=== PATIENT | male | born 1985 | race Hispanic/Latino ===

== ENCOUNTER 2017-11-10 14:57 | Emergency (ER) | payer OTHER ==
[2017-11-10 15:03] VITALS: BMI 25.0
[2017-11-10] MEDS ORDERED: Sodium Chloride 0.9% 1,000 ML IV STA (15:35)
--- NOTE | 2017-11-10 15:37 | C.PDOC ---
History Of Present Illness 31 y/o M p/w rectal bleeding x 2 days. Patient reports lower abdominal pain, cramping, intermittent, with diarrhea with bright red blood. Reports nausea and NBNB vomiting. Denies alcohol use for prolonged period. Denies being sexually active and not concerned with STDs. Denies fever, chills, chest pain, dyspnea, recent travel, camping/hiking. Time Seen by Provider: 11/10/17 15:15 Chief Complaint (Nursing): Abdominal Pain Past Medical History Vital Signs: Last Vital Signs Temp 98.4 F 11/10/17 15:03 Pulse 80 11/10/17 15:03 Resp 17 11/10/17 15:03 BP 133/83 11/10/17 15:03 Pulse Ox 100 11/10/17 15:03 - Medical History PMH: Pancreatitis Family History: States: No Known Family Hx - Social History Hx Alcohol Use: Yes Hx Substance Use: Yes - Immunization History Hx Tetanus Toxoid Vaccination: No Hx Influenza Vaccination: No Hx Pneumococcal Vaccination: No Review Of Systems Except As Marked, All Systems Reviewed And Found Negative. Constitutional: Negative for: Fever Cardiovascular: Negative for: Chest Pain Physical Exam - Physical Exam Additional Physical Exam Comments: Constitutional: No acute distress. Head: Normocephalic. Atraumatic. Eyes: PERRL. ENT: Moist mucous membranes. Neck: Supple. Cardiovascular: Regular rate. Radial pulse 2+ bilaterally. Chest: No tenderness. Respiratory: Clear to auscultation bilaterally. GI: Soft. Suprapubic tenderness. Nondistended. : No testicular tenderness or swelling. Bright red blood per rectum. No hemorrhoids or fissures. Back: No CVA tenderness. Musculoskeletal: No tenderness or swelling of extremities. Skin: No rash. Neurologic: Alert, no focal deficit. ED Course And Treatment - Laboratory Results Result Diagrams: 11/10/17 15:41 11/10/17 15:41 O2 Sat by Pulse Oximetry: 100 Medical Decision Making Medical Decision Making: Patient in no distress, states he is feeling well. Vitals normal. Antibiotics administered and prescribed. [employer] checked, counseled on opioid risks. F/u GI for further evaluation. Informed of pancreatic finding and copy of CT given. Disposition - Disposition Referrals: Antonio Hernández MD [Staff Provider] - [facility] [Outside] Disposition: HOME/ ROUTINE Disposition Time: 17:34 Condition: STABLE Additional Instructions: FINDINGS: LOWER THORAX: No visible consolidation, pleural effusion, or pneumothorax. LIVER: Unremarkable. GALLBLADDER AND BILE DUCTS: Unremarkable. PANCREAS: 1.3 x 1.6 cm low-density focus within the left upper quadrant possibly arising from the inferior stomach or the pancreatic tail. SPLEEN: Unremarkable. ADRENALS: Unremarkable. KIDNEYS AND URETERS: The kidneys enhance symmetrically. No hydronephrosis or obstructing calculus identified. VASCULATURE: No aortic aneurysm. BOWEL: Lack of oral contrast limits evaluation for bowel pathology. Bowel loops appear within normal limits of caliber without evidence of obstruction. Marked wall thickening of the left colon consistent with colitis (i.e. Infectious, inflammatory, ischemic). APPENDIX: The appendix appears within normal limits of caliber. No secondary signs of acute appendicitis. PERITONEUM: Mild mesenteric ascites. Small pelvic free fluid. No definite free air. LYMPH NODES: No bulky adenopathy identified. BLADDER: Unremarkable. REPRODUCTIVE: Prostate gland appears unremarkable. BONES: No acute osseous abnormality is detected. OTHER FINDINGS: None. IMPRESSION: Marked wall thickening of the left colon appears consistent with colitis (i.e. Infectious, inflammatory, ischemic). 1.3 x 1.6 cm low-density focus within the left upper quadrant possibly arising from the inferior stomach or the pancreatic tail. Dedicated pancreatic protocol may be considered for further evaluation. Small pelvic free fluid. Mild mesenteric ascites. Additional findings as above. Prescriptions: Ciprofloxacin [Cipro] 500 mg PO BID #14 tab Metronidazole [Flagyl] 500 mg PO Q8 #30 tab Ondansetron ODT [Zofran ODT] 4 mg PO Q8 #12 odt oxyCODONE/Acetaminophen [Percocet 5/325 mg Tab] 1 tab PO Q6 #10 tab Instructions: Inflammatory Bowel Disease, Bloody Stools, Adult (DC) Forms: [employer] (Maori) - Clinical Impression Clinical Impression: Colitis
[2017-11-10] MEDS ORDERED: Simethicone 80 mg Chewtab PO STA (15:45)
[2017-11-10 15:47] LABS: BASO # 0.1 K/uL (0.0-0.2); BASO % 0.5 % (0.0-2.0); HEMOGLOBIN 14.1 g/dL (12.0-18.0); MEAN CORPUSCULAR HEMOGLOBIN 29.8 pg (27.0-31.0); MEAN CORPUSCULAR HGB CONC 33.5 g/dL (33.0-37.0); MEAN PLATELET VOLUME 9.1 fL (7.2-11.7); MONO # 0.9 K/uL (0.0-0.8); MONO % 5.4 % (0.0-10.0); NEUT # 15.2 K/uL (1.8-7.0); NEUT % 88.1 % (50.0-75.0); PLATELET COUNT 235 K/uL (130-400); RBC 4.74 Mil/uL (4.40-5.90); RED CELL DISTRIBUTION WIDTH 13.9 % (11.5-14.5); WHITE BLOOD COUNT 17.3 K/uL (4.8-10.8)
[2017-11-10 15:48] LABS: URINE BILIRUBIN NEGATIVE (NEGATIVE); URINE CLARITY Clear (Clear); URINE COLOR Yellow (YELLOW); URINE GLUCOSE (UA) NORMAL (Normal); URINE LEUKOCYTE ESTERASE NEG Leu/uL (Negative); URINE PROTEIN 1+ mg/dL (NEGATIVE); URINE UROBILINOGEN NORMAL mg/dL (0.2-1.0)
[2017-11-10 15:50] LABS: URINE BLOOD 1+ (NEGATIVE)
[2017-11-10 15:59] LABS: BLOOD UREA NITROGEN 16 mg/dL (9-20); CALCIUM 9.9 mg/dl (8.6-10.4); GFR NON-AFRICAN AMERICAN > 60; LIPASE 33 U/L (23-300)
[2017-11-10 16:00] LABS: ALB/GLOB RATIO 1.5 (1.0-2.1); ALBUMIN 4.6 g/dL (3.5-5.0); ALT/SGPT 33 U/L (21-72); AST/SGOT 43 U/L (17-59)
[2017-11-10] MEDS ORDERED: Iodixanol 320 MG/ML 100 ML BOTTLE IV ONE (16:10)
[2017-11-10 16:17] LABS: LYMPHOCYTE 6 % (20-40); MONOCYTE 5 % (0-10); NEUTROPHIL 89 % (50-75); PLATELET ESTIMATE NORMAL (NORMAL); TOTAL CELLS COUNTED 100
--- NOTE | 2017-11-10 17:14 | CT ---
Date of service: 11/10/2017 PROCEDURE: CT Abdomen and Pelvis with contrast HISTORY: lower abdominal pain, rectal bleed, vomiting COMPARISON: None available TECHNIQUE: Contrast dose: 100 cc Visipaque IV Radiation dose: Total exam DLP = 376.26 mGy-cm. This CT exam was performed using one or more of the following dose reduction techniques: Automated exposure control, adjustment of the mA and/or kV according to patient size, and/or use of iterative reconstruction technique. FINDINGS: LOWER THORAX: No visible consolidation, pleural effusion, or pneumothorax. LIVER: Unremarkable. GALLBLADDER AND BILE DUCTS: Unremarkable. PANCREAS: 1.3 x 1.6 cm low-density focus within the left upper quadrant possibly arising from the inferior stomach or the pancreatic tail. SPLEEN: Unremarkable. ADRENALS: Unremarkable. KIDNEYS AND URETERS: The kidneys enhance symmetrically. No hydronephrosis or obstructing calculus identified. VASCULATURE: No aortic aneurysm. BOWEL: Lack of oral contrast limits evaluation for bowel pathology. Bowel loops appear within normal limits of caliber without evidence of obstruction. Marked wall thickening of the left colon consistent with colitis (i.e. Infectious, inflammatory, ischemic). APPENDIX: The appendix appears within normal limits of caliber. No secondary signs of acute appendicitis. PERITONEUM: Mild mesenteric ascites. Small pelvic free fluid. No definite free air. LYMPH NODES: No bulky adenopathy identified. BLADDER: Unremarkable. REPRODUCTIVE: Prostate gland appears unremarkable. BONES: No acute osseous abnormality is detected. OTHER FINDINGS: None. IMPRESSION: Marked wall thickening of the left colon appears consistent with colitis (i.e. Infectious, inflammatory, ischemic). 1.3 x 1.6 cm low-density focus within the left upper quadrant possibly arising from the inferior stomach or the pancreatic tail. Dedicated pancreatic protocol may be considered for further evaluation. Small pelvic free fluid. Mild mesenteric ascites. Additional findings as above.
[2017-11-10] MEDS ORDERED: Ciprofloxacin 400mg/200ml D5W 400 MG/200 ML BAG IVPB STA (17:31)
[2017-11-10] MEDS ORDERED: metroNIDAZOLE IV 500 mg/100 ml 500 MG/100 ML BAG IVPB STA (17:31)
[2017-11-10 17:35] VITALS: O2SAT 100
[2017-11-10] MEDS ORDERED: metroNIDAZOLE IV 500 mg/100 ml 500 MG/100 ML BAG ONE (17:35)
[2017-11-10] MEDS ORDERED: Ciprofloxacin 400mg/200ml D5W 400 MG/200 ML BAG IVPB ONE (18:16)
[2017-11-10 20:14] VITALS: BP 142/85; PULSE 60; RESP 16; TEMP 99
== END 2017-11-10 20:18 | disposition home or self-care (01) ==
LOC: C.ER 14:57
DX: K52.9 Noninfective gastroenteritis and colitis, unspecified (principal)
CPT/HCPCS: 74177; 80053; 81001; 83690; 85025; 96361; 96365; 96367; 96375; 99285; J0744; J2405; J7030; Q9967